=== PATIENT | female | born 1970 | race Asian ===

== ENCOUNTER 2017-06-06 16:48 | Emergency (ER) | payer SELFPAY ==
[~2017-06-06] VITALS: Ht 160 cm; Wt 64.0 kg
[2017-06-06 16:50] VITALS: Ht 160 cm; Wt 64.0 kg
--- NOTE | 2017-06-06 18:20 | ERD ---
ER Documentation Chief Complaint Date/Time DATE: 06/06/17 TIME: 18:18 Chief Complaint NEEDLE STICK ON RT THUMB AFTER ACCESSING PT PORT HPI This a 47-year-old female who presents to the emergency department today for laboratory work. 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 States she was unable to see anybody at her facility to draw the labs and therefore was told by her employer that she needs to be evaluated within 24 hours. States it has been greater than 5 years since her last tetanus update. Denies any fevers or chills, chest pain or shortness of breath. ROS All systems reviewed and are negative except as per history of present illness. Medications Home Meds Active Scripts Lamivudine-Zidovudine* (Lamivudine-Zidovudine*) 150-300 Mg Tablet, 1 TAB PO BID for 28 Days, TAB Prov:BAO ROLLE PA-C 06/06/17 PMhx/Soc History of Surgery: No Anesthesia Reaction: No Hx Neurological Disorder: No Hx Respiratory Disorders: No Hx Cardiac Disorders: No Hx Psychiatric Problems: No Hx Miscellaneous Medical Probl: No Hx Alcohol Use: Yes (OCCAS) Hx Substance Use: No Hx Tobacco Use: No Smoking Status: Never smoker Physical Exam Vitals Vital Signs Date Time Temp Pulse Resp B/P Pulse Ox O2 Delivery O2 Flow Rate FiO2 06/06/17 16:50 98.3 81 16 149/75 97 Physical Exam Const: NAD Head: Atraumatic Eyes: Normal Conjunctiva ENT: Normal External Ears, Nose and Mouth. Neck: Full range of motion..~ No meningismus. Resp: Clear to auscultation bilaterally Cardio: Regular rate and rhythm, no murmurs Abd: Soft, non tender, non distended. Normal bowel sounds Skin: Right thumb With evidence of small needlestick puncture no purulent discharge, erythema or warmth no active bleeding. Back: No midline or flank tenderness Ext: No cyanosis, or edema Neur: Awake and alert Psych: Normal Mood and Affect Result Diagram: 06/06/17 1820 Results 24 hrs Laboratory Tests Test 06/06/17 18:20 Sodium Level 139mmol/L Potassium Level 3.7mmol/L Chloride Level 104mmol/L Carbon Dioxide Level 24mmol/L Anion Gap 15 Blood Urea Nitrogen 10mg/dl Creatinine 0.65mg/dl Glucose Level 87mg/dl Calcium Level 9.1mg/dl Total Bilirubin 0.5mg/dl Direct Bilirubin 0.00mg/dl Indirect Bilirubin 0.5mg/dl Aspartate Amino Transf (AST/SGOT) 28IU/L Alanine Aminotransferase (ALT/SGPT) 31IU/L Alkaline Phosphatase 48IU/L Total Protein 8.0g/dl Albumin 4.4g/dl Globulin 3.60g/dl Albumin/Globulin Ratio 1.22 Current Medications Medications (Trade) Dose Ordered Sig/Myriam Route PRN Reason Start Time Stop Time Status Last Admin Dose Admin Diphtheria/ Tetanus/Acell Pertussis (Adacel) 0.5 ml ONCE ONCE IM* 06/06/17 18:30 06/06/17 18:31 DC 06/06/17 18:53 Procedures/MDM Is a 47-year-old female presents the emergency department today for laboratory work after sticking herself with a needle while at work as a nursing supervisor payroll while changing someone's Port-A-Cath. Hepatitis panel and HIV panel was ordered for the patient. She may follow-up in a few days with regards to her results.I did check patient's liver enzymes as she was requesting HIV prophylaxis. Patient's tetanus was also updated here in the emergency department. CMP shows no elevated liver enzymes. Her electrolytes are within normal limits. Patient was given a prescription for Combivir. She may follow-up with her employee health and follow-up with medical records in regards to her laboratory work that she had done here. Patient is discharged in stable condition. At this time the patient is stable for discharge and outpatient management. Patient should follow up with their PCP in the next 1-2 days. They may return to the emergency department sooner for any persistent or worsening of symptoms. Patient understood and agreed with the plan. Departure Diagnosis: Primary Impression: Needlestick wound of finger Encounter type: initial encounter Qualified Code: S61.239A - Needlestick injury of finger, initial encounter Additional Impression: Encounter for laboratory test Condition: BAO Aguiar PA-C Jun 06, 2017 18:20
[2017-06-06] MEDS ORDERED: DIPHTH/TET/ACEL PERTUSS (ADULT) 0.5 ML VIAL IM* ONE (18:30)
[2017-06-06 19:04] LABS: ALBUMIN 4.4 g/dl (3.3-4.9); ALBUMIN/GLOBULIN RATIO 1.22; BILIRUBIN,INDIRECT 0.5 mg/dl (0-1.1); BILIRUBIN,TOTAL 0.5 mg/dl (0.2-1.3); CALCIUM 9.1 mg/dl (8.4-10.2); CREATININE 0.65 mg/dl (0.44-1.00); POTASSIUM 3.7 mmol/L (3.5-5.1)
[2017-06-06] MEDS ORDERED: LAMI1TAB PO (19:13)
[2017-06-06 19:28] VITALS: BP 130/71; PULSE 70; RESP 20
== END 2017-06-06 19:32 | disposition home or self-care (01) ==
LOC: FTE 16:48
DX: S61.239A Puncture wound without foreign body of unspecified finger without damage to nail, initial encounter (principal); W46.0XXA Contact with hypodermic needle, initial encounter; Y92.89 Other specified places as the place of occurrence of the external cause
CPT/HCPCS: 80053; 86703; 86706; 86803; 87340; 90471; 90715